=== PATIENT | female | born 1985 | race American Indian/Alaskan Native ===

== ENCOUNTER 2019-06-06 01:43 | Emergency (ER) | payer MEDICAID, OTHER ==
[2019-06-06] MEDS ORDERED: Sodium Chloride 0.9% 1,000 ML IV ONE (01:50)
[2019-06-06] MEDS ORDERED: Ondansetron 4 MG/2 ML SDV IVPUSH ONE (01:51)
[2019-06-06] MEDS ORDERED: Pantoprazole 40 MG in Sodium Chloride 0.9% 10 ML IV ONE (01:51)
--- NOTE | 2019-06-06 01:52 | EDM.PDOC ---
ED HPI GENERAL MEDICAL PROBLEM - General Chief Complaint: Abdominal Pain Stated Complaint: UPPER ABDOMINAL PAIN Time Seen by Provider: 06/06/19 01:45 Source of Information: Reports: Patient History Limitations: Reports: Intoxication - History of Present Illness INITIAL COMMENTS - FREE TEXT/NARRATIVE: Patient is a 34-year-old female who is complaining of upper abdominal pain which she has been going on all day. Patient has been drinking alcohol the entire day and denies any vomiting or bloody or tarry stools. She has a known history of gallstones which may be contributing to her symptoms. She denies any fever or chills. She is clearly intoxicated. She denies any dysuria or hematuria. Patient has taken several antacids which has given her some relief of her pain symptoms. She has had similar symptoms in the past. She denies any chest pain or chest pressure. She has no shortness of breath or diaphoresis. Onset: Today Duration: Getting Worse Location: Reports: Abdomen Quality: Reports: Ache, Burning Severity: Moderate Improves with: Reports: None Worsens with: Reports: Eating Associated Symptoms: Reports: No Other Symptoms Abdomen Pain Score (Numeric/FACES): 5 - Related Data Allergies Allergy/AdvReac Type Severity Reaction Status Date / Time No Known Allergies Allergy Verified 06/06/19 01:51 Home Meds: Home Meds Ondansetron [Zofran ODT] 4 mg PO Q6H PRN #10 tab.dis 06/06/19 [Rx] Promethazine [Phenergan] 25 mg PO Q6H PRN #10 tab 06/06/19 [Rx] ED ROS GENERAL - Review of Systems Review Of Systems: Comprehensive ROS is negative, except as noted in HPI. ED EXAM, GI/ABD - Physical Exam Exam: See Below Exam Limited By: Intoxication General Appearance: No Apparent Distress Throat/Mouth: Normal Inspection Head: Atraumatic, Normocephalic Neck: Normal Inspection Respiratory/Chest: No Respiratory Distress, Lungs Clear, Normal Breath Sounds Cardiovascular: Normal Peripheral Pulses, Regular Rate, Rhythm, No Edema GI/Abdominal Exam: Normal Bowel Sounds, Soft, No Organomegaly, No Distention, No Mass, Tender. No: Non-Tender, Hepatomegaly, Splenomegaly Back Exam: Normal Inspection, Full Range of Motion. No: CVA Tenderness (L), CVA Tenderness (R) Extremities: Normal Inspection Neurological: Slow to Respond Psychiatric: Depressed Mood Skin Exam: Warm, Dry, Normal Color Course - Vital Signs Text/Narrative:: Patient's blood alcohol returned at 333. Her other labs are mildly elevated for her LFTs. Patient is feeling better with IV fluids and meds. I have discussed with her the need for her to go to AA or detox and not drink alcohol. She found this idea to be entertaining. I have instructed her to take acid blocking medicine such as Prilosec and use antacids as needed. She should follow-up with a loss control consultant or surgeon if she continues to have symptoms since they may be somewhat secondary to her gallstones. She may return to emergency department anytime she is worse. I will give her a prescription for some anti-medics. Last Recorded V/S: Last Vital Signs Temp 36 C L 06/06/19 01:45 Pulse 82 06/06/19 01:45 Resp 18 06/06/19 01:45 BP 107/63 06/06/19 01:45 Pulse Ox 98 06/06/19 01:45 - Orders/Labs/Meds Labs: Laboratory Tests 06/06/19 06/06/19 06/06/19 Range/Units 02:07 02:07 02:21 WBC 8.49 (4.0-11.0) K/uL RBC 4.41 (4.30-5.90) M/uL Hgb 8.2 L (12.0-16.0) g/dL Hct 29.4 L (36.0-46.0) % MCV 66.7 L (80.0-98.0) fL MCH 18.6 L (27.0-32.0) pg MCHC 27.9 L (31.0-37.0) g/dL RDW Std Deviation 46.9 (28.0-62.0) fl RDW Coeff of Yoni 19 H (11.0-15.0) % Plt Count 451 H (150-400) K/uL MPV 8.50 (7.40-12.00) fL Neut % (Auto) 47.1 L (48.0-80.0) % Lymph % (Auto) 42.5 H (16.0-40.0) % Hernando % (Auto) 8.5 (0.0-15.0) % Eos % (Auto) 1.3 (0.0-7.0) % Baso % (Auto) 0.6 (0.0-1.5) % Neut # (Auto) 4.0 (1.4-5.7) K/uL Lymph # (Auto) 3.6 H (0.6-2.4) K/uL Hernando # (Auto) 0.7 (0.0-0.8) K/uL Eos # (Auto) 0.1 (0.0-0.7) K/uL Baso # (Auto) 0.1 (0.0-0.1) K/uL Nucleated RBC % 0.0 /100WBC Nucleated RBCs # 0 K/uL Sodium 148 H (136-145) mmol/L Potassium 3.7 (3.5-5.1) mmol/L Chloride 109 H (98-107) mmol/L Carbon Dioxide 29.4 (21.0-32.0) mmol/L BUN 9 (7.0-18.0) mg/dL Creatinine 0.8 (0.6-1.0) mg/dL Est Cr Clr Drug Dosing 83.95 mL/min Estimated GFR (MDRD) > 60.0 ml/min Glucose 109 H (74-106) mg/dL Calcium 8.1 L (8.5-10.1) mg/dL Total Bilirubin 0.1 L (0.2-1.0) mg/dL AST 11 L (15-37) IU/L ALT 20 (14-63) IU/L Alkaline Phosphatase 96 (46-116) U/L Total Protein 7.0 (6.4-8.2) g/dL Albumin 3.3 L (3.4-5.0) g/dL Globulin 3.7 (2.6-4.0) g/dL Albumin/Globulin Ratio 0.9 (0.9-1.6) Lipase 215 (73-393) U/L Urine Color YELLOW Urine Appearance CLEAR Urine pH 6.0 (5.0-8.0) Ur Specific Milam <= 1.005 (1.001-1.035) Urine Protein NEGATIVE (NEGATIVE) mg/dL Urine Glucose (UA) NEGATIVE (NEGATIVE) mg/dL Urine Ketones NEGATIVE (NEGATIVE) mg/dL Urine Occult Blood NEGATIVE (NEGATIVE) Urine Nitrite NEGATIVE (NEGATIVE) Urine Bilirubin NEGATIVE (NEGATIVE) Urine Urobilinogen 0.2 (<2.0) EU/dL Ur Leukocyte Esterase NEGATIVE (NEGATIVE) Urine RBC 0-1 (0-2/HPF) Urine WBC 0-1 (0-5/HPF) Ur Epithelial Cells RARE (NONE-FEW) Urine Bacteria RARE (NEGATIVE) Ethyl Alcohol 333 mg/dL Meds: Medications Discontinued Medications Generic Name Dose Route Start Last Admin Trade Name Cammie PRN Reason Stop Dose Admin Pantoprazole Sodium 40 mg/ 10 mls @ 300 mls/hr 06/06/19 01:51 06/06/19 01:58 Sodium Chloride IV 06/06/19 01:52 300 mls/hr NOW ONE Administration Sodium Chloride 1,000 mls @ 999 mls/hr 06/06/19 01:50 06/06/19 01:58 Normal Saline IV 06/06/19 02:50 999 mls/hr .BOLUS ONE Administration Ondansetron HCl 4 mg 06/06/19 01:51 06/06/19 01:59 Zofran IVPUSH 06/06/19 01:52 4 mg ONETIME ONE Administration Departure - Departure Time of Disposition: 03:03 Disposition: Home, Self-Care 01 Condition: Good Clinical Impression: Alcoholic gastritis without bleeding, Alcohol intoxication - Discharge Information Instructions: Alcohol Use Disorder, Gastritis, Adult, [id number] Forms: ED Department Discharge Additional Instructions: The following information is given to patients seen in the emergency department who are being discharged to home. This information is to outline your options for follow-up care. We provide all patients seen in our emergency department with a follow-up referral. The need for follow-up, as well as the timing and circumstances, are variable depending upon the specifics of your emergency department visit. If you don't have a primary care physician on staff, we will provide you with a referral. We always advise you to contact your personal physician following an emergency department visit to inform them of the circumstance of the visit and for follow-up with them and/or the need for any referrals to a consulting specialist. The emergency department will also refer you to a specialist when appropriate. This referral assures that you have the opportunity for follow-up care with a specialist. All of these measure are taken in an effort to provide you with optimal care, which includes your follow-up. Under all circumstances we always encourage you to contact your private physician who remains a resource for coordinating your care. When calling for follow-up care, please make the office aware that this follow-up is from your recent emergency room visit. If for any reason you are refused follow-up, please contact the [facility] Emergency Department at and asked to speak to the emergency department charge nurse. Care Plan Goals: Go to AA and or detox. Stop drinking alcohol. [id number] Prilosec and antacids as needed. Follow-up with PCP or loss control consultant if symptoms continue. Return to ER if worse. Antiemetics if needed. Sepsis Event Note - Focused Exam Vital Signs: Vital Signs Temp Pulse Resp BP Pulse Ox 06/06/19 01:45 36 C L 82 18 107/63 98 Date Exam was Performed: 06/06/19 Time Exam was Performed: 02:57
[2019-06-06 02:32] LABS: BLOOD UREA NITROGEN,BUN 9 mg/dL (7.0-18.0); CARBON DIOXIDE,CO2 29.4 mmol/L (21.0-32.0); CHLORIDE,CL 109 mmol/L (98-107); GLUCOSE RANDOM 109 mg/dL (74-106); LIPASE 215 U/L (73-393); POTASSIUM,K 3.7 mmol/L (3.5-5.1); SODIUM,NA 148 mmol/L (136-145)
== END 2019-06-06 03:31 | disposition home or self-care (01) ==
LOC: MW.ED 01:43 → EDSEX 01:43 → MW.ED 03:31
DX: K29.20 Alcoholic gastritis without bleeding (principal); F10.129 Alcohol abuse with intoxication, unspecified; Y90.8 Blood alcohol level of 240 mg/100 ml or more
CPT/HCPCS: 36415; 80053; 80307; 81001; 83690; 85025; 96361; 96374; 96375; 99284; C9113; J2405; J7030; J7050; 99283